=== PATIENT | male | born 1995 | race Caucasian/White ===

== ENCOUNTER 2024-04-14 14:56 | Emergency (ER) | payer MEDICAID ==
[~2024-04-14] VITALS: Ht 172.7 cm; Wt 62.0 kg
[2024-04-14 15:11] VITALS: O2SAT 98
[2024-04-14] MEDS: BACITRACIN ZINC OINT UDPKT TOP ONE (17:30)
[2024-04-14] MEDS: LIDOCAINE HCL/PF 1% 10 MG/ML 5ML VIAL INFIL ONE (17:30)
[2024-04-14] MEDS: TETANUS, DIPHTHERIA, PERTUSSIS VAC/PF 0.5ML (>10YR OLD) IM ONE (17:51)
[2024-04-14] MEDS ORDERED: IBUP-2029 MT (19:32)
[2024-04-14 21:00] VITALS: BP 151/82; PULSE 60; RESP 20; TEMP 36.83628; O2SAT 98
== END 2024-04-14 21:52 | disposition home or self-care (01) ==
LOC: ER 14:56
DX: S61.012A Laceration without foreign body of left thumb without damage to nail, initial encounter (principal); W25.XXXA Contact with sharp glass, initial encounter; Y93.89 Activity, other specified; Y92.89 Other specified places as the place of occurrence of the external cause; Y99.8 Other external cause status
CPT/HCPCS: 73140; 90715; 12002; 90471; 99283; J3490; Z7610